=== PATIENT | female | born 1940 | race Caucasian/White ===

== ENCOUNTER → 2016-07-03 | Outpatient (CLI) | payer MEDICARE, BC ==
[~2016-07-03] MED LIST: BACTRIM DS TABL1 TA1 PO; FLAGYL PO; LEVOFLOXACIN500 MG PO; MACROBID100 M1 PO; NAPROSYN500 MG PO; NO MEDICATIONS; PHENERGAN25 MG PO; TYLENOL #3 PO; VICODIN 5/500 T1 TAB PO; VOLTAREN75 MG PO
--- NOTE | ~2016-07-03 | CR230 ---
[facility]. [facility] A Service of [facility] & [facility] [place] [place] RADIOLOGY TEXT RESULTS PATIENT: RADHA GERARDO LOCATION: [facility] : 40 UNIT #: [id number] AGE: [address]: Keena Patel IMPROVEMENT RN SEX: F ORDER DR: [id number] [place] [id number] O MR#: [id number] Acc #: [id number] NAME: RADHA GERARDO : 1940 SEX: F STUDY DATE/TIME: 07/03/2016 14:08 UNIT: [facility] ROOM: STUDY DESCRIPTION: CR Shoulder Min 2 View Rt Attending Physician: Keena Patel A.P.R.N. Referring Physician: Keena Patel A.P.R.N. Ordering Physician: Keena Patel A.P.R.N. Primary Care Physician: Keena Patel A.P.R.N. MEDICAL IMAGING REPORT This report is preliminary unless electronic signature is present. EXAM 3 views right shoulder INDICATION Pain in the shoulders since Sunday night. No known injury. FINDINGS No acute fracture or subluxation of the right shoulder is identified. The patient does have degenerative changes involving both the right shoulder and right AC joint. No aggressive osseous abnormalities are seen. No focal soft tissue abnormalities are identified. IMPRESSION Degenerative changes as noted above. Dictated by... Adina Haro M.D. THIS IS AN ELECTRONICALLY VERIFIED REPORT Adina Haro M.D. at 07/04/2016 5:58 PM AFF/kassandra TD: 07/03/2016 21:24 JOB #: [id number] MEDICAL IMAGING REPORT Page 1 of 1
--- NOTE | ~2016-07-03 | CR206 ---
[facility] A Service of [facility] & [facility] RADIOLOGY TEXT RESULTS PATIENT: RADHA GERARDO LOCATION: [facility] : 40 UNIT #: [id number] AGE: [address]: Keena Patel SALON MANAGER SEX: F ORDER DR: [id number] [place] [id number] O MR#: [id number] Acc #: [id number] NAME: RADHA GERARDO : 1940 SEX: F STUDY DATE/TIME: 07/03/2016 14:08 UNIT: [facility] ROOM: STUDY DESCRIPTION: CR Pelvis 1 or 2 Views Attending Physician: Keena Patel A.P.R.N. Referring Physician: Keena Patel A.P.R.N. Ordering Physician: Keena Patel A.P.R.N. Primary Care Physician: Keena Patel A.P.R.N. MEDICAL IMAGING REPORT This report is preliminary unless electronic signature is present. EXAM 3 views of the bilateral hips INDICATIONS Bilateral hip pain since Sunday night. No known injury. FINDINGS No acute fracture or subluxation of either hip is identified. The patient does have some mild degenerative changes involving the hips with some additional degenerative changes noted within the lumbosacral spine and involving the SI joints bilaterally. No aggressive osseous abnormalities are seen. IMPRESSION No acute disease. Dictated by... Adina Haro M.D. THIS IS AN ELECTRONICALLY VERIFIED REPORT Adina Haro M.D. at 07/04/2016 5:58 PM AFF/to TD: 07/03/2016 21:13 JOB #: [id number] MEDICAL IMAGING REPORT Page 1 of 1
--- NOTE | ~2016-07-03 | CR229 ---
[facility] A Service of [facility] RADIOLOGY TEXT RESULTS PATIENT: RADHA GERARDO LOCATION: [facility] : 40 UNIT #: [id number] AGE: [address]: Keena PatelP SEX: F ORDER DR: [id number] [place] [id number] O MR#: [id number] Acc #: [id number] NAME: RADHA GERARDO : 1940 SEX: F STUDY DATE/TIME: 07/03/2016 14:08 UNIT: [facility] ROOM: STUDY DESCRIPTION: CR Shoulder Min 2 View Lt Attending Physician: Keena Patel A.P.R.N. Referring Physician: Keena Patel A.P.R.N. Ordering Physician: Keena Patel A.P.R.N. Primary Care Physician: eKena Patel A.P.R.N. MEDICAL IMAGING REPORT This report is preliminary unless electronic signature is present. EXAM 3 views left shoulder INDICATIONS Left shoulder pain since Sunday night. No known injury. FINDINGS No acute fracture or subluxation of the left shoulder is identified. The patient had some mild degenerative changes involving the left AC joint. Similar findings were present in October 2011. No aggressive osseous abnormalities are seen. IMPRESSION No acute disease. Dictated by... Adina Haro M.D. THIS IS AN ELECTRONICALLY VERIFIED REPORT Adina Haro M.D. at 07/04/2016 5:58 PM AFF/to TD: 07/03/2016 21:14 JOB #: [id number] MEDICAL IMAGING REPORT Page 1 of 1
== END | disposition home or self-care (01) ==
LOC: SRAD 13:59
DX: M25.512 Pain in left shoulder (principal); M25.511 Pain in right shoulder; M25.551 Pain in right hip; M25.552 Pain in left hip
CPT/HCPCS: 72170; 73030

== ENCOUNTER 2016-09-20 04:21 | Emergency (ER) | payer MEDICARE, BC ==
[~2016-09-20] VITALS: Ht 170.2 cm; Wt 87.5 kg
--- NOTE | ~2016-09-20 | CT71 ---
[facility] A Service of [facility] & [facility] [place] [place] RADIOLOGY TEXT RESULTS PATIENT: RADHA GERARDO LOCATION: [facility] : 40 UNIT #: [id number] AGE: [address]: Charles Ahn MD SEX: F ORDER DR: [id number] [facility] [address] [place], [place] [address] [id number] E MR#: [id number] Acc #: [id number] NAME: RADHA GERARDO. : 1940 SEX: F STUDY DATE/TIME: 09/20/2016 5:59 UNIT: [facility] ROOM: STUDY DESCRIPTION: CT Head Wo Contrast Attending Physician: Charles Ahn M.D. Ordering Physician: Chip Haq M.D. Primary Care Physician: Keena Patel A.P.R.N. MEDICAL IMAGING REPORT This report is preliminary unless electronic signature is present EXAM CT head without contrast, 09/20/2016. COMPARISON CT head without contrast dated 09/30/2008. HISTORY Syncope. The patient fell in tub today. Pain above the left eye and neck pain. TECHNIQUE CT of the head was obtained without contrast in the axial and planar protocol. This CT exam was performed with one or more of the following radiation dose reduction techniques: automatic exposure control, adjustment of mA and/or kV according to patient size, and iterative reconstruction. FINDINGS There is a small bony protuberance noted along the left parietal inner table, in the region of the convexity. It is noted in image 35, series 2. Immediately inferior to this there is a less than 1 cm round hyperdensity noted. It is not having the same appearance of the prior CT from 09/30/2008. There is patchy area of prominent asymmetrical CSF in this region, along the posteromedial left parietal lobe. This hypodensity is stable since prior study and could be related to an old insult. The remaining brain does not demonstrate any significant uptake abnormalities or hydrocephalus. Bones are within normal limits. Mastoid air cells, paranasal sinuses are well aerated. Nasal septum is deviated to the left. Orbits of the ocular structures do not demonstrate any significant abnormality. IMPRESSION STS. [facility] A Service of [facility] & [facility] [place] RADIOLOGY TEXT RESULTS PATIENT: RADHA GERARDO LOCATION: [facility] : 40 UNIT #: [id number] AGE: [address]: Charles Ahn MD SEX: F ORDER DR: 1. There is a small bony excrescence extending from the posterior left parietal inner table, extending intracranially. This is an incidental nonaggressive finding. Small exostosis is in the differential consideration. 2. Immediately inferior to this there is a less than 1 cm round hyperdensity noted. In the setting of trauma, though it could be hemorrhage, it could also represent possible extension of the bony protuberance inferiorly. It, however, appears to be slightly different in appearance when compared to right side and the prior study from 2008. Depending on the clinical concern, followup can be considered if there is a strong suspicion for hemorrhage. 3. In the same region along the posteromedian and superior left parietal lobe, there is asymmetrical prominent hypodensity. It is probably prominent CSF in the sulcus or encephalomalacia change. Benign. Dictated by... Hung Patel M.D. THIS IS AN ELECTRONICALLY VERIFIED REPORT Hung Patel M.D. at 09/25/2016 3:49 PM CPR/gz TD: 09/20/2016 11:19 JOB #: [id number] MEDICAL IMAGING REPORT Page 1 of 1 COPY
--- NOTE | ~2016-09-20 | EKG ---
PATIENT: RADHA GERARDO UNIT #: [id number] Ventricular Rate: 55 BPM Atrial Rate: 55 BPM P-R Interval: 216 ms QRS Duration: 96 ms Q-T Interval: 430 ms QTC Calculation(Bezet): 411 ms P Benson: 45 degrees Calculated R Benson: 34 degrees Calculated T Benson: 49 degrees Diagnosis Line: Sinus bradycardia with 1st degree A-V block Diagnosis Line: Otherwise normal ECG Diagnosis Line: When compared with ECG of 28-SEP-2014 21:19, Diagnosis Line: Vent. rate has decreased BY 56 BPM Diagnosis Line: Confirmed by ANNA MARIE HANSEN MD ([id number]) on 09/20/2016 Diagnosis Line: 11:09:00 PM INTERPRETING MD: TYRONE MARINELLI
--- NOTE | ~2016-09-20 | CR229 ---
[facility] A Service of [facility] & [facility] RADIOLOGY TEXT RESULTS PATIENT: RADHA GERARDO LOCATION: [facility] : 40 UNIT #: [id number] AGE: [address]: Charles Ahn MD SEX: F ORDER DR: [id number] [facility] [address] [place], [place] [address] [id number] E MR#: [id number] Acc #: [id number] NAME: RADHA GERARDO. : 1940 SEX: F STUDY DATE/TIME: 09/20/2016 6:05 UNIT: [facility] ROOM: STUDY DESCRIPTION: CR Shoulder Min 2 View Lt Attending Physician: Charles Ahn M.D. Ordering Physician: Chip Haq M.D. Primary Care Physician: Keena Patel A.P.R.N. MEDICAL IMAGING REPORT This report is preliminary unless electronic signature is present EXAM Left shoulder series, 09/20/2016. COMPARISON Left shoulder series dated 07/03/2016. HISTORY Status post fall in tub today with left shoulder pain. FINDINGS Three views of the left shoulder were obtained. Mild arthritic changes of the left glenohumeral and acromioclavicular joints are noted without acute displaced fracture or dislocation. Adjacent soft tissues do not demonstrate any significant acute abnormalities. Dictated by... Hung Patel M.D. THIS IS AN ELECTRONICALLY VERIFIED REPORT Hung Patel M.D. at 09/20/2016 3:28 PM CPR/gz TD: 09/20/2016 11:32 JOB #: [id number] MEDICAL IMAGING REPORT Page 1 of 1 COPY
--- NOTE | ~2016-09-20 | CR72 ---
[facility] A Service of [facility] & [facility] RADIOLOGY TEXT RESULTS PATIENT: RADHA GERARDO LOCATION: [facility] : 40 UNIT #: [id number] AGE: [address]: Charlse Ahn MD SEX: F ORDER DR: [id number] [facility] [address] [place], [place] [address] [id number] E MR#: [id number] Acc #: [id number] NAME: RADHA GERARDO. : 1940 SEX: F STUDY DATE/TIME: 09/20/2016 6:05 UNIT: [facility] ROOM: STUDY DESCRIPTION: CR Chest Single View Portable Attending Physician: Charles Ahn M.D. Ordering Physician: Chip Haq M.D. Primary Care Physician: Keena Patel A.P.R.N. MEDICAL IMAGING REPORT This report is preliminary unless electronic signature is present EXAM Frontal single view of the chest dated 09/20/16 at 0605 hours. COMPARISON Chest, 2 views, dated 12/27/14 at 1458 hours. HISTORY Syncope, left-sided chest pain, left shoulder pain today post fall in tub. FINDINGS Frontal view of the chest was obtained. No acute cardiopulmonary disease. Stable calcified large mediastinal lymph node and small left hilar lymph nodes suggestive of old granulomatous disease. Heart is of normal size. Multilevel endplate osteophytes of the thoracic spine are seen. 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 Dictated by... Hung Patel M.D. THIS IS AN ELECTRONICALLY VERIFIED REPORT Hung Patel M.D. at 09/20/2016 3:28 PM CPR/pc TD: 09/20/2016 11:19 JOB #: [id number] MEDICAL IMAGING REPORT Page 1 of 1 COPY
--- NOTE | ~2016-09-20 | CT71 ---
[facility] A Service of [facility] & [facility] RADIOLOGY TEXT RESULTS PATIENT: RADHA GERARDO LOCATION: [facility] : 40 UNIT #: [id number] AGE: [address]: Charles Ahn MD SEX: F ORDER DR: [id number] [facility] [address] [place], [place] [address] [id number] E MR#: [id number] Acc #: [id number] NAME: RADHA GERARDO. : 1940 SEX: F STUDY DATE/TIME: 09/20/2016 11:05 UNIT: [facility] ROOM: STUDY DESCRIPTION: CT Head Wo Contrast Attending Physician: Charles Ahn M.D. Ordering Physician: Charles Ahn M.D. Primary Care Physician: Keena Patel A.P.R.N. MEDICAL IMAGING REPORT This report is preliminary unless electronic signature is present EXAM Noncontrast head CT. HISTORY Fell in tub this morning, pain above left eye, questionable bleed on previous scan, 09/20/2016 at [address] exam was performed with one or more of the following radiation dose reduction techniques: automatic exposure control, adjustment of mA and/or kV according to patient size, and iterative reconstruction. FINDINGS Axial noncontrast imaging of the brain demonstrates a focal area of encephalomalacia involving the left posterior parietal or occipital lobe, unchanged from prior examinations. The area of hyperdensity noted on the most recent head CT is not apparent on the followup study and I suspect this is related to partial volume averaging of a focal osseous excrescence off the inner table of the posterior skull. This remains stable from studies dating back to 2008, most likely represents a benign process. Remainder of the brain parenchyma unremarkable except for mild atrophy. No mass lesions. Skull base, mastoids, sinuses unremarkable. IMPRESSION No acute intracranial abnormality identified. The area of hyperdensity within the left posterior vertex near the midline is felt to represent partial volume artifact related to prominent inner table of the posterior calvaria. This remains stable when compared to studies dating back to 2008 and is compatible with a benign process. Potentially just representing arachnoid granulation or benign exostosis. Again, no definite acute intracranial abnormality identified. There is some stable focal encephalomalacia in the left posterior vertex but this remains unchanged from prior exams. [facility] A Service of [facility] & [facility] RADIOLOGY TEXT RESULTS PATIENT: RADHA GERARDO LOCATION: [facility] #: [id number] : 40 UNIT #: [id number] AGE: [address]: Charles Ahn MD SEX: F ORDER DR: Dictated by... Joe Min M.D. THIS IS AN ELECTRONICALLY VERIFIED REPORT Joe Min M.D. at 09/22/2016 4:50 PM ELAINE/valerie TD: 09/20/2016 15:53 JOB #: [id number] MEDICAL IMAGING REPORT Page 1 of 1 COPY
[2016-09-20 05:53] LABS: BASOPHIL% 0.3 % (0-2.5); EOSINOPHIL% 0.3 % (0.0-7.0); HEMATOCRIT 38.6 % (35.0-45.0); HEMOGLOBIN 13.1 gm/dL (12.0-16.0); LYMPHOCYTE# 1.1 X10e3 (1.0-3.5); LYMPHOCYTE% 9.3 % (17.0-45.0); MEAN CELL VOLUME 91.2 FL (83-96); MEAN PLATELET VOLUME 7.7 FL (6.5-11.5); MONOCYTE# 0.8 X10e3 (0-1.0); NEUTROPHIL# 9.8 X10e3 (1.5-7.1); NEUTROPHIL% 83.1 % (40-75); PLATELET COUNT 266 X10e3 (140-420); RED BLOOD COUNT 4.23 X10e (3.90-5.30); RED CELL DISTRIBUTION WIDTH 13.1 % (11.0-15.5); WHITE BLOOD COUNT 11.7 X10e3 (4.0-10.5)
[2016-09-20 05:54] LABS: DIFF IND NO
[2016-09-20 06:07] LABS: POC - CKMB 2.6 ng/mL (0.0-7.9); POC - TROPONIN <0.05 ng/mL (<=0.05)
[2016-09-20 06:23] LABS: ALBUMIN SERUM 4.1 g/dL (3.5-5.0); BILIRUBIN, DIRECT 0.2 mg/dL (0.0-0.2); BILIRUBIN,INDIRECT 0.9 mg/dL (0.0-0.9); BILIRUBIN,TOTAL 1.1 mg/dL (0.2-2.0); BUN/CREATININE RATIO 11.25; CALCIUM SERUM 8.9 mg/dL (8.4-10.2); CREATININE SERUM 0.8 mg/dL (0.6-1.4); GLOM FILT RATE Estimated 72.2 mL/min (>60); POTASSIUM 3.4 mmol/L (3.5-5.1)
[2016-09-20 08:41] LABS: URINE SOURCE CLEAN CATCH
[2016-09-20 08:50] LABS: URINE APPEARANCE CLEAR; URINE BILIRUBIN NEG (NEG); URINE BLOOD NEG (NEG); URINE COLOR YELLOW; URINE GLUCOSE NEG (NEG); URINE KETONE 1+ (NEG); URINE LEUKOCYTE ESTERASE 1+ (NEG); URINE NITRATE NEG (NEG); URINE PROTEIN NEG (NEG); URINE SPECIFIC GRAVITY 1.008 (1.003-1.035); URINE UROBILINOGEN 0.2 MG/DL (NEG)
[2016-09-20 08:52] LABS: U HYALINE CASTS AUWI 0-2 /[LPF]; URBCS1 AUWI 0-2 /[HPF] (0-2); URINE BACTERIA AUWI NEG (NEGATIVE); URINE SQUAMOUS EPITHELIAL CELL OCC /[HPF]
[2016-09-20 08:59] LABS: CULTURE INDICATED? NO
== END 2016-09-20 11:55 | disposition home or self-care (01) ==
LOC: CED 04:21
PROVIDERS: Emergency Medicine
DX: S05.12XA Contusion of eyeball and orbital tissues, left eye, initial encounter (principal); R55 Syncope and collapse; Z87.440 Personal history of urinary (tract) infections; Z90.710 Acquired absence of both cervix and uterus; X58.XXXA Exposure to other specified factors, initial encounter; Y92.9 Unspecified place or not applicable
CPT/HCPCS: 36415; 70450; 71010; 73030; 80048; 80076; 81003; 82553; 82947; 84484; 85025; 93005; 96360; 99285